=== PATIENT | female | born 1995 | race Caucasian/White ===

== ENCOUNTER 2017-01-21 01:21 | Emergency (ER) | payer OTHER ==
--- NOTE | 2017-01-21 01:47 | PDOC ---
History of Present Illness - General Stated Complaint: TOOTHACHE Time Seen by Provider: 01/21/17 01:24 History Source: Patient Exam Limitations: No Limitations - History of Present Illness Initial Comments: 01/21/17 01:42 21yo Female patient with no significant past medical history presents to ED c/o worsening dental pain. Patient states symptoms began 2 weeks ago, she went to see her dentist and was prescribed Amoxicillin and Ibuprofen. Patient states today symptoms worsened and she has been unable to sleep, eat or drink any foods. She denies any other complaints at this time. Timing/Duration: constant, getting worse Severity: severe Modifying Factors: improves with: medication. worse with: cold therapy, eating , immobilization, movement, rest, other Associated Symptoms: denies: denies symptoms, chest pain, cough, diaphoresis, fever/chills, headaches, loss of appetite, malaise, nausea/vomiting, rash, seizure, shortness of breath, syncope, weakness, other Aspirin Received prior to arrival: No: no aspirin today, unknown, 81 mg x 1, 81 mg x 2, 81 mg x 3, 81 mg x 4, 325 mg x 1, provided at home, provided by EMS, provided by ED Past History - Travel Traveled outside of the country in the last 30 days: No Close contact w/someone who was outside of country & ill: No - Past Medical History Allergies/Adverse Reactions: Allergies Allergy/AdvReac Type Severity Reaction Status Date / Time No Known Allergies Allergy Verified 12/17/15 23:08 Home Medications: Ambulatory Orders Oxycodone HCl/Acetaminophen [Endocet 7.5-325 mg Tablet] 1 each PO Q4H PRN #24 tablet MDD 6 tabs 01/21/17 Asthma: No Cancer: No Cardiac Disorders: No Diabetes: No HTN: No Seizures: No Thyroid Disease: No - Psycho/Social/Smoking Cessation Hx Anxiety: No Suicidal Ideation: No Smoking Status: No Smoking History: Never smoked Have you smoked in the past 12 months: No Number of Cigarettes Smoked Daily: 0 If you are a former smoker, when did you quit?: YR AGO Hx Alcohol Use: No Drug/Substance Use Hx: No Substance Use Type: None Hx Substance Use Treatment: No Review of Systems - Review of Systems Able to Perform ROS?: Yes Is the patient limited Citizen Of [place] proficient: No HEENTM: Yes: Mouth Pain, Dental Problems. No: Throat Pain, Throat Swelling, Difficulty Swallowing, Mouth Swelling All Other Systems: Reviewed and Negative *Physical Exam - Physical Exam General Appearance: Yes: Nourished, Appropriately Dressed, Moderate Distress. No: Apparent Distress, Mild Distress, Severe Distress HEENT: positive: EOMI, PRINCE, Normal ENT Inspection, Normal Voice, Symmetrical, TMs Normal, Pharynx Normal, Other (Mild Dental Decay noted to Tooth #19, and Moderate to Severe decay noted to tooth #16 with crack enamel. No gum line inflammation noted.). negative: Tonsillar Exudate, Tonsillar Erythema, TM Bulging, TM Dull, TM Erythema Neck: positive: Trachea midline, Normal Thyroid, Supple. negative: Lymphadenopathy (R), Lymphadenopathy (L) Respiratory/Chest: positive: Lungs Clear, Normal Breath Sounds. negative: Chest Tender, Respiratory Distress, Accessory Muscle Use, Labored Respiration, Rapid RR Cardiovascular: positive: Regular Rhythm, Regular Rate Musculoskeletal: positive: Normal Inspection. negative: CVA Tenderness Extremity: positive: Normal Capillary Refill, Normal Inspection, Normal Range of Motion. negative: Pedal Edema, Swelling, Calf Tenderness, Erythema, Inflammation Integumentary: positive: Normal Color, Dry, Warm Neurologic: positive: endoscopy nurse II-XII NML intact, Fully Oriented, Alert, Normal Mood/ Affect, Normal Response, Motor Strength 5/5 *DC/Admit/Observation/Transfer Diagnosis at time of Disposition: Pain due to dental caries - Discharge Dispostion Disposition: HOME Condition at time of disposition: Stable Admit: No - Prescriptions Prescriptions: Oxycodone HCl/Acetaminophen [Endocet 7.5-325 mg Tablet] 1 each PO Q4H PRN #24 tablet MDD 6 tabs PRN Reason: Severe Pain - Patient Instructions Printed Discharge Instructions: DI for Tooth Decay Additional Instructions: FOLLOW UP WITH YOUR DENTIST FOR FURTHER EVALUATION. TRY MOTRIN 800MG AND TYLENOL 1000MG EVERY 6 HOURS TOGETHER, OR 1 TABLET OF PERCOCET WITH 800MG MOTRIN OR 500MG TYLENOL. CONTINUE ANTIBIOTICS. RINSE MOUTH WITH WARM SALT WATER TWICE DAILY. DO NOT DRIVE, DRINK ALCOHOL, OR OPERATE HEAVY MACHINERY WHILE TAKING PERCOCET. Print Language: SCOTTISH
[2017-01-21 02:04] VITALS: BP 127/65; PULSE 103; TEMP 97.5; BMI 25.7
== END 2017-01-21 02:20 | disposition home or self-care (01) ==
LOC: JER 01:21
DX: K02.9 Dental caries, unspecified (principal)
CPT/HCPCS: 99281-25

== ENCOUNTER 2018-09-11 20:27 | Emergency (ER) | payer OTHER ==
--- NOTE | 2018-09-11 20:46 | PDOC ---
Rapid Medical Evaluation Time Seen by Provider: 09/11/18 20:43 Medical Evaluation: Allergies Allergy/AdvReac Type Severity Reaction Status Date / Time No Known Allergies Allergy Verified 01/21/17 01:49 09/11/18 20:43 I have performed a brief in-person evaluation of this patient. The patient presents with a chief complaint of:abdominal cramping x1 week and painful breast x2 days negative at home. Pertinent physical exam findings:deferred I have ordered the following: U Preg The patient will proceed to the ED for further evaluation. 09/11/18 20:44 Discharge Disposition - Diagnosis Pelvic pain, Soreness breast - Referrals - Patient Instructions - Post Discharge Activity
[2018-09-11 21:55] VITALS: BP 146/80; PULSE 95; TEMP 98.1; BMI 34.0
--- NOTE | 2018-09-11 22:04 | PDOC ---
History of Present Illness - General Chief Complaint: Pain Stated Complaint: ABDOMINAL PAIN Time Seen by Provider: 09/11/18 20:43 History Source: Patient Exam Limitations: No Limitations - History of Present Illness Initial Comments: 09/11/18 21:58 HISTORY OF PRESENT ILLNESS: 23-year-old woman denies medical history presents emergency department for evaluation of bilateral breast tenderness for 2 days. Patient was recently seen and evaluated at [facility] and was diagnosed with chlamydia. Patient was treated at that time presents for evaluation for concern due to . Patient reports she had a sexual encounter with when she "barely knew" which led to her diagnosis of chlamydia. Patient was noted to have had a negative test at that time and had a negative test at home. Patient reports her last menstrual period was . Patient reports having irregular menses. No recent travel or sick contacts. PAST MEDICAL HISTORY: Denies past medical history SURGICAL HISTORY: Denies ALLERGIES: No known drug allergies REVIEW OF SYSTEMS General/Constitutional: Denies fever or chills. Denies weakness, weight change. HEENT: Denies change in vision. Denies ear pain or discharge. Denies sore throat. Cardiovascular: Denies chest pain or shortness of breath. Respiratory: Denies cough, wheezing, or hemoptysis. Gastrointestinal: Denies nausea, vomiting, diarrhea or constipation. Denies rectal bleeding. Genitourinary: Denies dysuria, frequency, or change in urination. Musculoskeletal: Denies joint or muscle swelling or pain. Denies neck or back pain. Skin and breasts: See history of present illness Neurologic: Denies headache, vertigo, loss of consciousness, or loss of sensation. Psychiatric: Denies depression or anxiety. Endocrine: Denies increased thirst. Denies abnormal weight change. Hematologic/Lymphatic: Denies anemia, easy bleeding, or history of blood clots. Allergic/Immunologic: Denies hives or skin allergy. Denies latex allergy. PHYSICAL EXAM General Appearance: Well-appearing, appropriately dressed. No apparent distress , no intoxication. HEENT: EOMI, PERRLA, normal ENT inspection, normal voice, TMs normal, pharynx normal. No conjunctival pallor. No photophobia, scleral icterus. Neck: Supple. Trachea midline. No tenderness, rigidity, carotid bruit, stridor , lymphadenopathy, or thyromegaly. Respiratory/Chest: Lungs CTAB. No shortness of breath, chest tenderness, respiratory distress, accessory muscle use. No crackles, rales, rhonchi, stridor , wheezing, dullness Cardiovascular: RRR. S1, S2. No JVD, murmur, bradycardia, tachycardia. Vascular Pulses: Dorsalis-Pedis (R): 2+, Dorsalis-Pedis (L): 2+ Gastrointestinal/Abdominal: Normal bowel sounds. Abdomen soft, non-distended. No tenderness or rebound tenderness. No organomegaly, pulsatile mass, guarding, hernia, hepatomegaly, splenomegaly. Lymphatic: No adenopathy, tenderness. Musculoskeletal/Extremities: Normal inspection. FROM of all extremities, normal capillary refill. Pelvis Stable. No CVA tenderness. No tenderness to extremities, pedal edema, swelling, erythema or deformity. Integumentary: Appropriate color, dry, warm. No cyanosis, erythema, jaundice or rash Neurologic: gold beater II-XII intact. Fully oriented, alert. Appropriate mood/affect. Motor strength 5/5. No appreciable EOM palsy, facial droop or sensory deficit. Past History - Past Medical History Allergies/Adverse Reactions: Allergies Allergy/AdvReac Type Severity Reaction Status Date / Time No Known Allergies Allergy Verified 01/21/17 01:49 Home Medications: Ambulatory Orders Oxycodone HCl/Acetaminophen [Endocet 7.5-325 mg Tablet] 1 each PO Q4H PRN #24 tablet MDD 6 tabs 01/21/17 Asthma: No Cancer: No Cardiac Disorders: No Diabetes: No HTN: No Seizures: No Thyroid Disease: No - Suicide/Smoking/Psychosocial Hx Smoking Status: No Smoking History: Never smoked Have you smoked in the past 12 months: No Number of Cigarettes Smoked Daily: 0 If you are a former smoker, when did you quit?: YR AGO Hx Alcohol Use: No Drug/Substance Use Hx: No Substance Use Type: None Hx Substance Use Treatment: No *Physical Exam - Vital Signs Last Vital Signs Temp Pulse Resp BP Pulse Ox 98.1 F 95 H 20 146/80 100 09/11/18 20:44 09/11/18 20:44 09/11/18 20:44 09/11/18 20:44 09/11/18 20:44 Moderate Sedation - Procedure Monitoring Vital Signs: Procedure Monitoring Vital Signs Temperature 98.1 F 09/11/18 20:44 Pulse Rate 95 H 03/22/19 20:44 Respiratory Rate 20 09/11/18 20:44 Blood Pressure 146/80 09/11/18 20:44 O2 Sat by Pulse Oximetry (%) 100 09/11/18 20:44 ED Treatment Course - ADDITIONAL ORDERS Additional order review: Laboratory Results 09/11/18 20:53 Urine HCG, Qual Negative Medical Decision Making - Medical Decision Making 09/11/18 22:01 A/P: 23-year-old woman with bilateral breast tenderness for 2 days Exam performed with flight technician present during exam. No warmth or erythema present. Bilateral breast exam which revealed no tenderness, masses. No discharge from the nipple present No tenderness or masses present in the axilla or on the tail of Espin[place]. Given patient's last initial period was 08/22/18 and negative urine testing here, this is most likely premenstrual breast tenderness. Patient instructed to take NSAID pain relievers for tenderness. Return precautions provided. I discussed the physical exam findings, ancillary test results and final diagnoses with the patient. I answered all of the patient's questions. The patient was satisfied with the care received and felt comfortable with the discharge plan and treatment plan. The patient will call their primary care physician within 24 hours to arrange follow-up and will return to the Emergency Department with any new, persistent or worsening symptoms. *DC/Admit/Observation/Transfer Diagnosis at time of Disposition: Soreness breast - Discharge Dispostion Disposition: HOME Condition at time of disposition: Stable Decision to Admit order: No - Referrals - Patient Instructions Additional Instructions: Take Tylenol or Motrin as directed by manufacturers instructions for any breast tenderness. Return to emergency department for any new or worsening symptoms. Thank you very much for choosing us to provide your emergent health care needs. - Post Discharge Activity
== END 2018-09-11 22:14 | disposition home or self-care (01) ==
LOC: JER 20:27
DX: N64.4 Mastodynia (principal); Z87.891 Personal history of nicotine dependence
CPT/HCPCS: 84703; 99282-25

== ENCOUNTER 2019-06-01 21:20 | Emergency (ER) | payer OTHER ==
[2019-06-01 21:51] VITALS: BP 138/80; PULSE 98; TEMP 97.6; BMI 33.8
--- NOTE | 2019-06-01 21:52 | PDOC ---
Rapid Medical Evaluation Chief Complaint: Chest Pain Time Seen by Provider: 06/01/19 21:48 Medical Evaluation: Allergies Allergy/AdvReac Type Severity Reaction Status Date / Time No Known Allergies Allergy Verified 09/11/18 22:12 06/01/19 21:50 I have performed a brief in-person evaluation of this patient. The patient presents with a chief complaint of:no sig PMhx present with mid- sternal CP x 3hrs worse with deep breathing. Denies numbness or tingling sensation, Denies SOB, dizziness, sweats, N/V Pertinent physical exam findings: A&Ox 3 in NAD. heart RRR. lungs CTAB I have ordered the following: EKG, CBC,CARDIAC profile, CXR The patient will proceed to the ED for further evaluation. Discharge Disposition - Diagnosis Chest discomfort - Discharge Dispostion Condition at time of disposition: Stable - Referrals - Patient Instructions - Post Discharge Activity
[2019-06-01 23:04] LABS: BASO % 0.7 % (0-2.0); EOS % 1.4 % (0-4.5); HEMATOCRIT 38.1 % (32.4-45.2); HEMOGLOBIN 12.5 GM/dL (10.7-15.3); LYMPH % 30.8 % (8-40); MCH 29.2 pg (25.7-33.7); MCHC 32.9 g/dl (32.0-36.0); MEAN CELL VOLUME 88.5 fl (80-96); MONO % 7.7 % (3.8-10.2); NEUT % 59.4 % (42.8-82.8); PLATELET COUNT 221 K/MM3 (134-434); RDW 12.3 % (11.6-15.6); WHITE BLOOD COUNT 6.6 K/mm3 (4.0-10.0)
[2019-06-01 23:51] LABS: ALBUMIN 3.7 g/dl (3.4-5.0); ALK PHOS 104 U/L (45-117); ANION GAP 7 MMOL/L (8-16); BILIRUBIN,TOTAL 0.3 mg/dL (0.2-1); BLOOD UREA NITROGEN 6.9 mg/dL (7-18); CALCIUM 8.6 mg/dL (8.5-10.1); CHLORIDE 108 mmol/L (98-107); CO2 26 mmol/L (21-32); CREATININE 0.7 mg/dL (0.55-1.3); GLUCOSE,RANDOM 93 mg/dL (74-106); POTASSIUM 4.1 mmol/L (3.5-5.1); SGOT/AST 15 U/L (15-37); SGPT/ALT 25 U/L (13-61); SODIUM 142 mmol/L (136-145); TOT PROT 7.1 g/dl (6.4-8.2)
--- NOTE | 2019-06-02 02:02 | PDOC ---
Documentation entered by Mio Lozada SCRIBE, acting as scribe for Mayelin Jon MD. Mayelin Jon MD: This documentation has been prepared by the Neville cade Daniel, SCRIBE, under my direction and personally reviewed by me in its entirety. I confirm that the documentation accurately reflects all work, treatment, procedures, and medical decision making performed by me. History of Present Illness - General Chief Complaint: Chest Pain Stated Complaint: CHEST PAIN Time Seen by Provider: 06/01/19 21:48 History Source: Patient Exam Limitations: No Limitations - History of Present Illness Initial Comments: 06/01/19 23:41 The patient is a 23 year old female with a past medical history of HTN, anemia, and GERD here today for evaluation of chest pain. The patient reports that she got off the bed and yelled at one of her children around 1 PM today and suddenly felt a sharp chest pain and couldnt catch her breath. She states that this feeling only lasted for 20-30 seconds but since then has felt chest pain with deep breaths that she describes as a tightness. Patient denies headache, lightheadedness. Denies fever, chills. Denies nausea, vomiting, diarrhea, abdominal pain. Allergies: NKA Surgical history: , cholecystectomy PCP: Kimberly Kuhn Past History - Past Medical History Allergies/Adverse Reactions: Allergies Allergy/AdvReac Type Severity Reaction Status Date / Time No Known Allergies Allergy Verified 06/01/19 21:51 Home Medications: Ambulatory Orders NK [No Known Home Medication] 06/02/19 Asthma: No Cancer: No Cardiac Disorders: No COPD: No Diabetes: No HTN: No Seizures: No Thyroid Disease: No Other medical history: DENIES - Reproductive History Therapeutic (s) & number: No - Immunization History Immunization Up to Date: Yes - Psycho Social/Smoking Cessation Hx Smoking Status: No Smoking History: Never smoked Have you smoked in the past 12 months: No Number of Cigarettes Smoked Daily: 0 If you are a former smoker, when did you quit?: YR AGO Information on smoking cessation initiated: No Hx Alcohol Use: No Drug/Substance Use Hx: No Substance Use Type: None Hx Substance Use Treatment: No Review of Systems - Review of Systems Able to Perform ROS?: Yes Comments:: 06/01/19 23:41 CONSTITUTIONAL: Absent: fever, chills, diaphoresis, generalized weakness, malaise, loss of appetite HEENT: Absent: rhinorrhea, nasal congestion, throat pain, throat swelling, difficulty swallowing, mouth swelling, ear pain, eye pain, visual Changes CARDIOVASCULAR: +chest pain. Absent: syncope, palpitations, irregular heart rate, lightheadedness, peripheral edema RESPIRATORY: Absent: cough, shortness of breath, dyspnea with exertion, orthopnea, wheezing, stridor, hemoptysis GASTROINTESTINAL: Absent: abdominal pain, abdominal distension, nausea, vomiting, diarrhea, constipation, melena, hematochezia GENITOURINARY: Absent: dysuria, frequency, urgency, hesitancy, hematuria, flank pain, genital pain MUSCULOSKELETAL: Absent: myalgia, arthralgia, joint swelling SKIN: Absent: rash, itching, pallor HEMATOLOGIC/IMMUNOLOGIC: Absent: easy bleeding, easy bruising, lymphadenopathy, frequent infections ENDOCRINE: Absent: unexplained weight gain, unexplained weight loss, heat intolerance, cold intolerance NEUROLOGIC: Absent: headache, focal weakness or paresthesias, dizziness, unsteady gait, seizure, mental status changes, bladder or bowel incontinence PSYCHIATRIC: Absent: anxiety, depression, suicidal or homicidal ideation, hallucinations. *Physical Exam - Vital Signs Last Vital Signs Temp Pulse Resp BP Pulse Ox 97.6 F 98 H 17 138/80 99 06/01/19 21:48 06/01/19 21:48 06/01/19 21:48 06/01/19 21:48 06/01/19 21:48 - Physical Exam 06/01/19 23:41 GENERAL: Well developed, well nourished. Awake and alert. No acute distress. HEENT: Normocephalic, atraumatic. PERRLA, EOMI. No conjunctival pallor. Sclera are non- icteric. Moist mucous membranes. Oropharynx is clear. NECK: Supple. Full ROM. No JVD. Carotid pulses 2+ and symmetric, without bruits. No thyromegaly. No lymphadenopathy. CARDIOVASCULAR: Regular rate and rhythm. No murmurs, rubs, or gallops. Distal pulses are 2+ and symmetric. PULMONARY: No evidence of respiratory distress. Lungs clear to auscultation bilaterally. No wheezing, rales or rhonchi. ABDOMINAL: Soft. Non-tender. Non-distended. No rebound or guarding. No organomegaly. Normoactive bowel sounds. MUSCULOSKELETAL Normal range of motion at all joints. No bony deformities or tenderness. No CVA tenderness. EXTREMITIES: No cyanosis. No clubbing. No edema. No calf tenderness. SKIN: Warm and dry. Normal capillary refill. No rashes. No jaundice. NEUROLOGICAL: Alert, awake, appropriate. Cranial nerves 2-12 intact. No deficits to light touch and temperature in face, upper extremities and lower extremities. No motor deficits in the face, upper extremities and lower extremities. Normoreflexic in the upper and lower extremities. Normal speech. Toes are down- going bilaterally. Gait is normal without ataxia. PSYCHIATRIC: Cooperative. Good eye contact. Appropriate mood and affect. ED Treatment Course - LABORATORY CBC & Chemistry Diagram: 06/01/19 22:50 06/01/19 22:50 - ADDITIONAL ORDERS Additional order review: 06/01/19 22:50 RBC 4.30 MCV 88.5 MCHC 32.9 RDW 12.3 MPV 9.0 Neutrophils % 59.4 Lymphocytes % 30.8 D Monocytes % 7.7 Eosinophils % 1.4 Basophils % 0.7 Discharge - Discharge Information Problems reviewed: Yes Clinical Impression/Diagnosis: Pleuritic chest pain Condition: Stable Disposition: HOME - Follow up/Referral Referrals: Kimberly Kuhn [Primary Care Provider] - - Patient Discharge Instructions Patient Printed Discharge Instructions: DI for Atypical Chest Pain Additional Instructions: please take tylenol for pain return if you develop any worsening symptoms - Post Discharge Activity
--- NOTE | 2019-06-02 10:32 | EKG ---
Test Reason : Blood Pressure : / mmHG Vent. Rate : 092 BPM Atrial Rate : 092 BPM P-R Int : 118 ms QRS Dur : 088 ms QT Int : 368 ms P-R-T Axes : 047 059 036 degrees QTc Int : 455 ms NORMAL SINUS RHYTHM NORMAL ECG WHEN COMPARED WITH ECG OF 10-SEP-2015 16:31, NO SIGNIFICANT CHANGE WAS FOUND Confirmed by DAVID COOPER MD ([id number]) on 06/02/2019 10:31:49 AM Referred By: Confirmed By:DAVID COOPER MD
== END 2019-06-02 01:44 | disposition home or self-care (01) ==
LOC: JER 21:20
DX: R07.9 Chest pain, unspecified (principal); Z87.891 Personal history of nicotine dependence
CPT/HCPCS: 36415; 71046-TC-FY; 80053; 82550; 84484; 85025; 85379; 93005; 93010; 99283-25

== ENCOUNTER 2019-07-15 09:47 | Emergency (ER) | payer OTHER ==
[2019-07-15 10:29] VITALS: BP 123/77; PULSE 92; TEMP 97.9; BMI 33.8
[2019-07-15] MEDS ORDERED: DEXAMETHASONE LIQUID 0.5 MG/5 ML PO ONE (10:55)
[2019-07-15] MEDS ORDERED: DEXAMETHASONE SOD PHOSPHATE 10 MG/1 ML VIAL ONE (11:11)
--- NOTE | 2019-07-15 11:37 | PDOC ---
History of Present Illness - General Chief Complaint: Rash Stated Complaint: RASH Time Seen by Provider: 07/15/19 10:46 History Source: Patient Exam Limitations: No Limitations - History of Present Illness Initial Comments: 07/15/19 11:30 24-year-old female denies past medical history presents complaining of itchy rash to face upper neck, upper back and upper arms x3 days. Patient has not taken any Benadryl or medication for itching. Reports that she has used a new facial cream 7 days ago and a new soap 4 days ago. Denies difficulty breathing , shortness of breath, chest pain, nausea, vomiting, abdominal pain, recent travel or any other complaint. ROS: GENERAL/CONSTITUTIONAL: No fever, chills, weakness, dizziness HEAD, EYES, EARS, NOSE AND THROAT: No changes in vision, No ear pain or discharge, No sore throat CARDIOVASCULAR: No chest pain RESPIRATORY: No shortness of breath or cough GASTROINTESTINAL: No pain, nausea, vomiting, diarrhea or constipation GENITOURINARY: No dysuria MUSCULOSKELETAL: No neck or back pain SKIN: Rash NEUROLOGIC: No headache, vertigo, loss of consciousness, or loss of sensation PE: GENERAL: well-appearing, NAD, speaking full sentences HEAD: NCAT EYES: Pupils equal, round and reactive to light, sclera anicteric, conjunctiva clear ENT: pharynx: no erythema, no exudate, uvula midline NECK: supple CHEST: nontender RESP: clear, no w/r/r CARDIO: rrr, no m/g/r ABD: +BS, soft, nontender, non distended BACK: no midline spinal ttp, no CVAT EXTREMITIES: Normal range of motion, no edema NEUROLOGICAL: Normal speech, normal gait SKIN: Diffuse papular rash throughout face, upper neck, upper chest, upper back and upper extremities, no hives noted, no erythema, no warmth or tenderness to palpation, no excoriations noted Is this a multiple visit Asthma Patient?: No Past History - Past Medical History Allergies/Adverse Reactions: Allergies Allergy/AdvReac Type Severity Reaction Status Date / Time No Known Allergies Allergy Verified 07/15/19 10:29 Home Medications: Ambulatory Orders predniSONE [Deltasone -] 40 mg PO DAILY 4 Days #4 tablet 07/15/19 Asthma: No Cancer: No Cardiac Disorders: No COPD: No Diabetes: No HTN: No Seizures: No Thyroid Disease: No - Reproductive History Therapeutic (s) & number: No - Immunization History Immunization Up to Date: Yes - Psycho Social/Smoking Cessation Hx Smoking Status: No Smoking History: Never smoked Have you smoked in the past 12 months: No Number of Cigarettes Smoked Daily: 0 If you are a former smoker, when did you quit?: YR AGO Hx Alcohol Use: No Drug/Substance Use Hx: No Substance Use Type: None Hx Substance Use Treatment: No *Physical Exam - Vital Signs Last Vital Signs Temp Pulse Resp BP Pulse Ox 97.9 F 92 H 16 123/77 97 07/15/19 10:27 07/15/19 10:27 07/15/19 10:27 07/15/19 10:27 07/15/19 10:27 ED Treatment Course - Medications Given in the ED: ED Medications Discontinued Medications Generic Name Dose Route Start Last Admin Trade Name Samq PRN Reason Stop Dose Admin Dexamethasone 10 mg 07/15/19 10:55 07/15/19 11:12 Decadron Liquid - PO 07/15/19 10:56 10 mg ONCE ONE Administration Diphenhydramine HCl 50 mg 07/15/19 10:55 07/15/19 11:12 Benadryl Injection - IM 07/15/19 10:56 50 mg ONCE ONE Administration Medical Decision Making - Medical Decision Making 07/15/19 11:33 24-year-old female denies past medical history complaining of pruritic rash to face, upper neck, upper back, upper chest and bilateral upper extremities x3 days. Has used no face cream and new soap over the past 7 days. No difficulty breathing, throat closing sensation, facial swelling, fever, chills, nausea or any other complaint. Exam consistent with mild allergic reaction Benadryl 50 mg IM x1 P.o. Decadron Will send prescription for tapered dose of prednisone Advised to follow-up with an warehouse unloader Instructed to stop using the new face cream and no soap Understands she needs to return to the ED if she develops difficulty breathing, throat closing sensation, worsening itching, nausea, vomiting or any other concern. Discharge - Discharge Information Problems reviewed: Yes Clinical Impression/Diagnosis: Allergic reaction Qualifiers: Encounter type: initial encounter Qualified Code(s): T78.40XA - Allergy, unspecified, initial encounter Condition: Stable Disposition: HOME - Admission No - Follow up/Referral Referrals: Gudelia Fofana [Primary Care Provider] - - Patient Discharge Instructions Additional Instructions: Take prednisone 40 mg x 4 days starting tomorrow Take Benadryl 25 mg every 6 hours as needed for itching Follow-up with an warehouse unloader within 1 week Return to ER if difficulty breathing, shortness of breath, throat closing sensation or any worsening concerns - Post Discharge Activity
== END 2019-07-15 11:39 | disposition home or self-care (01) ==
LOC: JERFT 09:47
DX: T49.8X1A Poisoning by other topical agents, accidental (unintentional), initial encounter (principal); L23.2 Allergic contact dermatitis due to cosmetics; Y92.038 Other place in apartment as the place of occurrence of the external cause
CPT/HCPCS: 99281-25

== ENCOUNTER 2020-07-15 20:00 | Emergency (ER) | payer OTHER ==
[2020-07-15 20:04] VITALS: BMI 34.3
[2020-07-15] MEDS ORDERED: ACETAMINOPHEN 1000 MG/100 ML VIAL (NON FORMULARY) IVPB ONE (21:13)
[2020-07-15] MEDS ORDERED: LACTATED RINGERS SOLUTION 1000 ML INFUS.BAG IV ONE (21:13)
[2020-07-15 21:58] LABS: EPI CELLS >36 /uL (0-25.1); HCG,QUALITATIVE URINE Negative; HYALINE CASTS 2 /uL (0-3.1); PH,URINE 7.5 (5.0-8.0); URINE APPEARANCE CLOUDY; URINE BACTERIA 1034 /uL (0-1359); URINE BILIRUBIN NEGATIVE (NEGATIVE); URINE COLOR YELLOW; URINE GLUCOSE (UA) NEGATIVE (NEGATIVE); URINE KETONE NEGATIVE (NEGATIVE); URINE LEUK ESTERASE 1+ (NEGATIVE); URINE NITRITE NEGATIVE (NEGATIVE); URINE PROTEIN NEGATIVE (NEGATIVE); URINE RBC 55 /uL (0-23.9); URINE WBC 59 /uL (0-25.8)
[2020-07-15 21:59] VITALS: BP 129/88; PULSE 85; TEMP 98.5
== END 2020-07-15 22:34 | disposition home or self-care (01) ==
LOC: JER 20:00
DX: R10.814 Left lower quadrant abdominal tenderness (principal)
CPT/HCPCS: 81003; 84703; 87086; 99283-25

== ENCOUNTER 2020-07-16 18:53 | Emergency (ER) | payer OTHER ==
[2020-07-16 18:59] VITALS: BMI 34.3
[2020-07-16] MEDS ORDERED: SODIUM CHLORIDE 1,000 ML IV STA (19:05)
[2020-07-16] MEDS ORDERED: ONDANSETRON 4 MG/2 ML VIAL IVPUSH ONE (19:05)
[2020-07-16] MEDS ORDERED: KETOROLAC TROMETHAMINE 30 MG/1 ML VIAL IVPUSH ONE (19:05)
[2020-07-16] MEDS ORDERED: ONDANSETRON 4 MG/2 ML VIAL ONE (19:06)
[2020-07-16] MEDS ORDERED: KETOROLAC TROMETHAMINE 30 MG/1 ML VIAL ONE (19:06)
[2020-07-16 19:30] LABS: BASO % 0.7 % (0-2.0); EOS % 0.6 % (0-4.5); HEMATOCRIT 43.4 % (32.4-45.2); HEMOGLOBIN 14.1 GM/dL (10.7-15.3); LYMPH % 19.5 % (8-40); MCH 28.7 pg (25.7-33.7); MCHC 32.4 g/dl (32.0-36.0); MEAN CELL VOLUME 88.4 fl (80-96); MEAN PLT VOLUME 8.9 fl (7.5-11.1); MONO % 4.9 % (3.8-10.2); NEUT % 74.3 % (42.8-82.8); PLATELET COUNT 306 K/MM3 (134-434); RBC 4.91 M/mm3 (3.60-5.2); RDW 12.2 % (11.6-15.6)
[2020-07-16 19:40] LABS: INR 0.96 (0.83-1.09); PROTHROMBIN TIME (PATIENT) 11.8 SEC (9.7-13.0)
[2020-07-16 19:56] LABS: CALCIUM 9.5 mg/dL (8.5-10.1)
[2020-07-16 19:57] LABS: ALBUMIN 4.6 g/dl (3.4-5.0); BLOOD UREA NITROGEN 7.6 mg/dL (7-18)
[2020-07-16 20:00] LABS: CREATININE 0.9 mg/dL (0.55-1.3)
[2020-07-16 20:01] LABS: BILIRUBIN,TOTAL 0.5 mg/dL (0.2-1)
[2020-07-16 20:02] LABS: TOT PROT 8.4 g/dl (6.4-8.2)
[2020-07-16 20:15] VITALS: PULSE 89
[2020-07-16] MEDS ORDERED: TAMSULOSIN HCL 0.4 MG CAP PO ONE (20:29)
[2020-07-16] MEDS ORDERED: morphine CARPU-JECT 2 MG/1 ML DISP.SYRIN IVPUSH ONE (20:32)
[2020-07-16] MEDS ORDERED: TAMSULOSIN HCL 0.4 MG CAP ONE (20:32)
[2020-07-16] MEDS ORDERED: MORPHINE SULFATE 2 MG/ML VIAL ONE (20:38)
[2020-07-16 22:49] LABS: HCG,QUALITATIVE URINE Negative
[2020-07-16 22:52] LABS: EPI CELLS 23 /uL (0-25.1); HYALINE CASTS 1 /uL (0-3.1); PH,URINE 6.5 (5.0-8.0); URINE APPEARANCE CLEAR; URINE BACTERIA 615 /uL (0-1359); URINE BILIRUBIN NEGATIVE (NEGATIVE); URINE COLOR YELLOW; URINE GLUCOSE (UA) NEGATIVE (NEGATIVE); URINE KETONE TRACE (NEGATIVE); URINE LEUK ESTERASE 1+ (NEGATIVE); URINE NITRITE NEGATIVE (NEGATIVE); URINE PROTEIN NEGATIVE (NEGATIVE); URINE RBC 46 /uL (0-23.9); URINE UROBILINOGEN 0.2 mg/dL (0.2-1.0); URINE WBC 87 /uL (0-25.8)
[2020-07-16 23:13] VITALS: BP 134/88; TEMP 98.3
== END 2020-07-16 23:02 | disposition home or self-care (01) ==
LOC: JERFT 18:53
PROC: 3E033NZ Introduction of Analgesics, Hypnotics, Sedatives into Peripheral Vein, Percutaneous Approach (ICD-10-PCS; principal; 2020-07-16)
PROC: 3E0333Z Introduction of Anti-inflammatory into Peripheral Vein, Percutaneous Approach (ICD-10-PCS; 2020-07-16)
PROC: 3E033GC Introduction of Other Therapeutic Substance into Peripheral Vein, Percutaneous Approach (ICD-10-PCS; 2020-07-16)
PROC: 3E0337Z Introduction of Electrolytic and Water Balance Substance into Peripheral Vein, Percutaneous Approach (ICD-10-PCS; 2020-07-16)
DX: N23 Unspecified renal colic (principal); N20.0 Calculus of kidney
CPT/HCPCS: 36415; 74176-TC; 80053; 81003; 84703; 85025; 85610; 99285-25

== ENCOUNTER 2022-08-18 17:04 | Emergency (ER) | payer OTHER ==
[2022-08-18 17:14] VITALS: BP 106/85; RESP 18; TEMP 98.3; BMI 34.5
[2022-08-18 18:15] VITALS: PULSE 92
== END 2022-08-18 18:32 | disposition home or self-care (01) ==
LOC: JER 17:04 → JERFT 17:04
DX: S81.812A Laceration without foreign body, left lower leg, initial encounter (principal); W25.XXXA Contact with sharp glass, initial encounter
CPT/HCPCS: 99282-25

== ENCOUNTER 2024-04-13 08:34 | Emergency (ER) | payer OTHER ==
[2024-04-13 08:42] VITALS: BP 134/91; PULSE 94; RESP 20; TEMP 98.3; BMI 37.2
[2024-04-13] MEDS ORDERED: PSEUDOEPHEDRINE HCL 60 MG TABLET ONE (09:06)
[2024-04-13] MEDS: PSEUDOEPHEDRINE HCL 30 MG TABLET PO ONE (09:10)
== END 2024-04-13 09:35 | disposition home or self-care (01) ==
LOC: JERFT 08:34
DX: H93.8X9 Other specified disorders of ear, unspecified ear (principal); H91.90 Unspecified hearing loss, unspecified ear
CPT/HCPCS: 99283-25